=== PATIENT | male | born 1980 | race Caucasian/White ===

== ENCOUNTER 2021-04-28 15:56 | Emergency (ER) | payer SELFPAY ==
[~2021-04-28] VITALS: Ht 170.2 cm; Wt 86.2 kg
[2021-04-28 16:09] VITALS: BP_SYST 152
--- NOTE | 2021-04-28 16:09 | NUR ---
Patient to ER CHAIR for evaluation. Side rails up. Report given to CATA REYES
--- NOTE | 2021-04-28 16:27 | NUR ---
Consent for ZABRINA signed and witnessed by RN. Pt verbally consented in front of officer and RN. Pt verified name and .
--- NOTE | 2021-04-28 16:30 | NUR ---
Written and verbal consent obtained from patient for blood alcohol, name and verified by patient. Disinfected patient's skin with iodine that did not contain alcohol or other volatile organic compound. Collected the blood from the subject named by venipuncture, in the presence of Officer Angel Luis. Used a sterile, dry hypodermic needle and dry vacuum blood collection. Two dry vacuum blood collection was supplied by the officer named above. Withdrew a specimen of blood from left ac of the subject named above. Inverted both blood tubes several times to ensure that the preservative and anticoagulant were thoroughly mixed in the blood specimen. I initialed both blood tube labels for identification. The labeled blood tubes were handed directly to the Officer named above. The blood tubes stopper remained in place while I had possession of the blood tubes. The Officer placed tubes into envelope and sealed it in my presence. Envelope initialed by myself and Officer named above. Patient tolerated well, bandage applied, and bleeding controlled.
[2021-04-28] MEDS ORDERED: IBUPROFEN 800 MG TABLET PO ONE (17:30)
--- NOTE | 2021-04-28 17:30 | NUR ---
PT SITTING IN HALLWAY CHAIR, NO DISTRESS NOTED, OFFICER AT THE BEDSIDE
[2021-04-28] MEDS ORDERED: IBUP-1971 PO (18:14)
[2021-04-28 18:19] VITALS: BP_SYST 142
--- NOTE | 2021-04-28 18:20 | NUR ---
Patient given written and verbal discharge instructions and verbalizes understanding. ER MD discussed with patient the results and treatment provided. Patient in stable condition. ID arm band removed. NO Rx given. Patient educated on pain management and to follow up with PMD. Pain Scale 0/10. Opportunity for questions provided and answered. Medication side effect fact sheet provided.
== END 2021-04-28 18:19 ==
LOC: SED 15:56
DX: S13.4XXA Sprain of ligaments of cervical spine, initial encounter (principal); V47.5XXA Car driver injured in collision with fixed or stationary object in traffic accident, initial encounter; Y93.89 Activity, other specified; Y92.89 Other specified places as the place of occurrence of the external cause; Y99.8 Other external cause status
CPT/HCPCS: 72040-TC; 99283